=== PATIENT | male | born 1960 | race Caucasian/White ===

== ENCOUNTER 2018-03-05 00:28 | Emergency (ER) | payer MEDICAID, OTHER ==
[2018-03-05 00:41] VITALS: BP 135/88
== END 2018-03-05 01:20 | disposition left against medical advice (07) ==
LOC: ED 00:28
DX: Z53.21 Procedure and treatment not carried out due to patient leaving prior to being seen by health care provider (principal)

== ENCOUNTER 2018-03-05 11:27 | Emergency (ER) | payer OTHER ==
--- NOTE | 2018-03-05 13:16 | XRAY Report ---
Reason: chest pain Procedure Date: 03/05/2018 Accession Number: [id number] / [id number] Procedure: XR - Chest 1 View X-Ray CPT Code: 89274 FULL RESULT: EXAM: CHEST RADIOGRAPHY EXAM DATE: 03/05/2018 01:03 PM. CLINICAL HISTORY: Chest pain. COMPARISON: None. TECHNIQUE: 1 view. FINDINGS: Lungs/Pleura: Lung volumes appear normal and symmetric. No consolidative process or edema. Negative for pneumothorax. Mediastinum: Within exam limitations, the cardiomediastinal contour is normal. Other: None. IMPRESSION: Negative for an acute cardiopulmonary abnormality. [facility]IA
--- NOTE | 2018-03-05 13:18 | XRAY Report ---
Reason: fall Procedure Date: 03/05/2018 Accession Number: [id number] / [id number] Procedure: XR - Shoulder 3 View RT CPT Code: FULL RESULT: EXAM: RIGHT SHOULDER RADIOGRAPHY EXAM DATE: 03/05/2018 01:03 PM. CLINICAL HISTORY: Fall. COMPARISON: SHOULDER 3 VIEW LT 10/04/2015 3:36 AM CHEST 1 VIEW 03/05/2018 12:52 PM. TECHNIQUE: 3 views. FINDINGS: Bones: There is a linear calcification fragment lateral to the clavicle at the acromioclavicular joint superiorly consistent with an avulsion fracture. No fracture of the scapula or humerus. Joints: There is widening of the acromioclavicular joint. There is no dislocation. Soft tissues: Negative for a right pneumothorax. IMPRESSION: 1. Widening of the acromioclavicular joint consistent with AC separation with a small linear avulsion chip fracture from the lateral clavicle. [facility]
--- NOTE | 2018-03-05 13:34 | ED Physician Documentation ---
PD HPI UPPER EXT INJURY - Stated complaint Stated Complaint: SHOULDER PX - Chief complaint Chief Complaint: Ext Problem - History obtained from History obtained from: Patient - History of Present Illness Location: Right, Shoulder Type of injury: Fall Where injury occurred: Home Timing - onset: Last night Timing - details: Abrupt onset, Intermittant Pain level max: 7 Pain level now: 0 Improved by: Rest Worsened by: Moving Associated symptoms: No: Weakness, Numbness, Tingling, Swelling, Discolored Contributing factors: No: Prior ortho surgery, Work related Similar symptoms before: Has not had sx before Recently seen: Not recently seen - Additonal information Additional information: 57-year-old male with no past medical or surgical history here with right shoulder pain after he fell on it last night trying to avoid dropping a tray of taffy candies. Review of Systems Ten Systems: 10 systems reviewed and negative Constitutional: denies: Fever, Myalgias Cardiac: denies: Chest pain / pressure Respiratory: denies: Dyspnea Musculoskeletal: reports: Extremity pain. denies: Neck pain, Back pain, Joint pain, Extremity swelling Neurologic: denies: Focal weakness, Numbness PD PAST MEDICAL HISTORY - Past Medical History Musculoskeletal: Rheumatoid arthritis - Past Surgical History Past Surgical History: Yes - Present Medications Home Medications: Ambulatory Orders Medication Instructions Recorded Confirmed Ibuprofen [Motrin] 800 mg PO Q8H PRN #30 tablet 03/05/18 - Allergies Allergies/Adverse Reactions: Allergies Allergy/AdvReac Type Severity Reaction Status Date / Time No Known Drug Allergies Allergy Verified 03/05/18 00:39 - Social History Does the pt smoke?: Yes Smoking Status: Current every day smoker Does the pt drink ETOH?: Yes Does the pt have substance abuse?: No - Immunizations Immunizations are current?: No Immunizations: TDAP current <10years PD ED PE NORMAL - Vitals Vital signs reviewed: Yes - General General: Alert and oriented X 3, No acute distress, Well developed/nourished - HEENT HEENT: Pharynx benign - Neck Neck: Supple, no meningeal sign - Cardiac Cardiac: RRR, No murmur - Respiratory Respiratory: No respiratory distress, Clear bilaterally - Abdomen Abdomen: Normal bowel sounds, Soft, Non tender, Non distended - Back Back: No CVA TTP, No spinal TTP - Derm Derm: Warm and dry - Extremities Extremities: No deformity, No edema, Other (Tender to palpation of the right posterior aspect of shoulder around the AC joint area. No obvious deformity. Extremities neurovascularly intact.) - Neuro Neuro: Alert and oriented X 3 - Psych Psych: Normal mood, Normal affect Results - Vitals Vitals: Vital Signs - 24 hr 03/05/18 03/05/18 11:29 14:02 Temperature 36.5 C 36.6 C Heart Rate 113 H 99 Respiratory 16 16 Rate Blood Pressure 144/96 H 135/92 H O2 Saturation 97 97 Oxygen O2 Source Room air PD MEDICAL DECISION MAKING - ED course Complexity details: reviewed results, re-evaluated patient, considered differential (Contusion, sprain, dislocation, fracture, ligamentous injury, AC separation), d/w patient, d/w [employer] [facility] consultant ED course: 1317 Case discussed with orthopedic doctor hydro station supervisor Dr. Arteaga. He recommended sling, ice and ibuprofen for pain. He will see the patient in the clinic next week. 1343 patient informed of x-ray results and orthopedic consult. Patient agreed with this plan. Patient does not want any pain medication right now. We will discharge him on Motrin and sling will be given to him. Departure - Departure Disposition: 01 Home, Self Care Clinical Impression: Avulsion fracture AC separation Qualifiers: Encounter type: initial encounter Laterality: right Qualified Code(s): S43.101A - Unspecified dislocation of right acromioclavicular joint, initial encounter Condition: Stable Instructions: ED Sprain AC Joint Follow-Up: Joana Arteaga MD [Provider Admit Priv/Credential] - Prescriptions: Ibuprofen [Motrin] 800 mg PO Q8H PRN #30 tablet PRN Reason: PAIN &/OR FEVER Comments: You had an AC separation and avulsion fracture of your clavicle. Wear the arm sling as provided to you from the ER. Take the Motrin as prescribed. Make sure he you put ice packs on your right shoulder today. Call the orthopedic Dr. Arteaga for appointment in 1 week. If worse return to the emergency room. Discharge Date/Time: 03/05/18 14:02
[2018-03-05 14:32] VITALS: BP 135/92
== END 2018-03-05 14:02 | disposition home or self-care (01) ==
LOC: ED 11:27
DX: S43.101A Unspecified dislocation of right acromioclavicular joint, initial encounter (principal); S42.031A Displaced fracture of lateral end of right clavicle, initial encounter for closed fracture; W01.0XXA Fall on same level from slipping, tripping and stumbling without subsequent striking against object, initial encounter; Y93.89 Activity, other specified; Y92.009 Unspecified place in unspecified non-institutional (private) residence as the place of occurrence of the external cause; F17.200 Nicotine dependence, unspecified, uncomplicated
CPT/HCPCS: 71045; 99283